=== PATIENT | male | born 1960 | race Caucasian/White ===

== ENCOUNTER 2024-12-01 08:55 | Emergency (ER) | payer MEDICARE, SELFPAY ==
[2024-12-01] VITALS (10 sets, daily range): BP systolic 161–169; BP diastolic 103–116; PULSE 62–86; TEMP 36.6; O2SAT 95–97; BMI 27.8
--- NOTE | 2024-12-01 09:21 | XR_ITS ---
The [address] [address] Patient Name: RENATA ALVAREZ MRN: [id number] date: 1960 Sex: M Assigned Patient Location: ED.MAIN Current Patient Location: ED.MAIN Accession/Order Number: [id number] Exam Date: 12/01/2024 09:29 Report Date: 12/01/2024 10:13 At the request of: BRIANA RASHID DO Procedure: XR chest 2V Plain film chest Single view HISTORY: Cough. Shortness of breath. Chest pain. COMPARISON: None FINDINGS: SUPPORT DEVICES: None POSTSURGICAL CHANGES: None HEART: Within normal limits PULMONARY JOSEPHINE: Within normal limits MEDIASTINUM: Unremarkable LUNGS AND PLEURA: No acute lung process, pleural effusion or pneumothorax identified. Hyperinflation. BONY STRUCTURES: Intact ADDITIONAL FINDINGS None XR/XR chest 2V IMPRESSION: No acute process. Impression dictated by: Gregorio Dill M.D. 12/01/2024 10:13 AM Dictation Location: [employer] Electronically authenticated by: [id number] Y Date: 12/01/2024 10:13
--- NOTE | 2024-12-01 09:21 | ECG_ITS ---
[facility] Test Date: 2024-12-01 Pat Name: RENATA ALVAREZ Department: Room: - Gender: Male Senior [employer]: : 1960 Requested By: [id number] Order Number: [id number] Reading MD: AMAYA PALMA M.D. Measurements Intervals [place] Rate: 80 P: 90 AL: 164 QRS: 35 QRSD: 90 T: 63 QT: 366 QTc: 401 Interpretive Statements 1100 Sinus rhythm 9110 normal ECG No previous ECG available for comparison Electronically Signed On 12-01-2024 15:15:42 EDT by AMAYA PALMA M.D.
[2024-12-01 09:38] LABS: Hematocrit 44.5 % (42.0-54.0); Hemoglobin 15.5 g/dL (14.0-18.0); Immature Granulocytes Abs Auto 0.01 10^3/uL (0.00-0.03); Immature Granulocytes Pct Auto 0.1 % (0.0-0.5); Lymphocytes Absolute Auto 2.3 10^3/uL (1.2-3.8); Mean Corpuscular HGB Conc 34.8 g/dL (29.9-35.2); Mean Corpuscular Hemoglobin 31.6 pg (25.9-34.0); Mean Corpuscular Volume 90.6 fL (80.0-94.0); Platelet Count 300 10^3/uL (150-450); Red Blood Count 4.91 10^6/uL (4.70-6.10); White Blood Count 7.4 10^3/uL (4.0-11.0)
[2024-12-01 09:41] LABS: Anion Gap 15.4; Blood Urea Nitrogen 14.0 mg/dL (7.0-18.0); Calcium 9.1 mg/dL (8.5-10.1); Carbon Dioxide 25.8 mmol/L (21.0-32.0); Chloride 105 mmol/L (98-107); Estimated GFR (African America >60 (>=60 mL/min/1.73m^2); Estimated GFR (Non-African Ame >60 (>=60 mL/min/1.73m^2); Glucose 108 mg/dL (74-106); Magnesium 2.2 mg/dL (1.8-2.4); Potassium 4.2 mmol/L (3.5-5.1); Sodium 142 mmol/L (136-145)
--- NOTE | 2024-12-01 11:09 | ED_ITS ---
HPI HPI - General Adult General Chief complaint: Chest Pain Stated complaint: CHEST PAIN SOB Time Seen by Provider: 12/01/24 09:07 Source: patient Mode of arrival: Wheelchair History of Present Illness HPI narrative: Patient is a 64-year-old male presenting to the emergency department for evaluation of left-sided chest pain. Patient states that his symptoms started around 2:30 in the morning, and woke him out of his sleep. He states the pain is intermittent, comes in waves, and feels like a stabbing/muscle spasm/squeezing pain. He denies any associated diaphoresis, shortness of breath, nausea, or vomiting. He denies history of coronary artery disease, previous IL, coronary stents, or CABG. He denies history of DVT/PE, leg swelling, hemoptysis, or other recent surgical procdures/immobilizations. He denies any trauma to the area. No fevers or chills. No URI symptoms such as cough or congestion. He states he took a 325 mg aspirin prior to his ED arrival. Related Data Allergies Allergy/AdvReac Type Severity Reaction Status Date / Time NSAIDS (Non-Steroidal Allergy Severe Hives Verified 12/01/24 09:05 Anti-Inflamma propoxyphene (From Darvon) Allergy Severe Hives Verified 12/01/24 09:05 Review of Systems ROS Status of ROS 10 or more systems reviewed and unremark able except as noted in history and below PFSH PFSH Social History Little interest or pleasure in doing things: not at all Feeling down, depressed, or hopeless: not at all Exam Narrative Exam Narrative: CONSTITUTIONAL: Well-appearing, answering questions and following commands appropriately SKIN: Was warm and dry. EYES: Sclera white. EARS, NOSE, THROAT: No JVD. RESPIRATORY: Clear to auscultation bilaterally, no wheezes, crackles, or stridor, no use of accessory muscles CARDIOVASCULAR: Normal rate and regular rhythm. There is no S3, S4, murmur, rub. Radial pulses are 2+ and symmetrical. GASTROINTESTINAL: Abdomen was soft, non-tender, and non-distended. There is no guarding or rebound tenderness MUSCULOSKELETAL: There was no lower extremity edema, erythema, or tenderness. NEUROLOGIC: Patient is awake and alert. Facies were symmetrical. Constitutional Vital Signs, click to edit/add: Last Vital Signs Temp 98 F 12/01/24 08:59 Pulse 79 12/01/24 10:10 Resp 23 H 12/01/24 10:10 BP 164/108 H 12/01/24 10:00 Pulse Ox 95 12/01/24 10:10 Course Vital Signs Vital signs: Vital Signs Temperature 98 F 12/01/24 08:59 Pulse Rate 76 12/01/24 08:59 Respiratory Rate 20 12/01/24 08:59 Blood Pressure 169/116 H 12/01/24 08:59 Pulse Oximetry 96 12/01/24 08:59 Temperature 98 F 12/01/24 08:59 Pulse Rate 79 12/01/24 10:10 Respiratory Rate 23 H 12/01/24 10:10 Blood Pressure 164/108 H 12/01/24 10:00 Pulse Oximetry 95 12/01/24 10:10 Medical Decision Making MDM Narrative Medical decision making narrative: Patient is a 64-year-old male presenting to the emergency department for evaluation of left-sided chest pain that began in the middle the night while he was sleeping, approximately 7 hours ago. His vital signs on arrival are significant for mild hypertension, otherwise were within normal limits. He is afebrile hemodynamically stable. Patient overall appears well and in no acute distress. He has a normal physical examination. Differential diagnosis includes ACS, arrhythmia, pneumothorax, pneumonia, musculoskeletal pain, muscle spasm. I did consider PE, however the patient is not tachycardic, hypoxic, and has a Wells Score of 0 for PE -making him low risk. IV was established and laboratory studies were obtained. Chest x-ray independently reviewed/interpreted by myself demonstrated no acute cardiopulmonary process. 12 Lead EKG: Normal sinus rhythm at a rate of 80. Normal axis. No ST segment elevations. QRS, UT, and QTc interval within normal limits. Final impression: normal sinus rhythm without evidence of acute myocardial ischemia Laboratory studies were unremarkable. No significant electrolyte or metabolic derangement. No evidence of acute kidney injury. No anemia, leukocytosis, or thrombocytopenia. Initial and repeat 2-hour troponins were nonelevated at 6.3 and 6.3 respectively. On reevaluation, patient states his chest pain still comes and goes, but overall is improving. Given his normal cardiac workup and atypical symptoms, I have low concern for ACS. Using the HEART score, he has a score of 3 (age, 1-2 risk factors for smoking) - making him low risk for MACE. I do believe the patient is stable for discharge. They were instructed to follow up with his PCP in the next 3 to 5 days for further care. Return precautions were given including any new or worsening symptoms. Patient understands and agrees to the plan. FINAL IMPRESSION: #Acute chest pain DISPOSITION: Discharged home CONDITION: Good Lab Data Lab results reviewed: Yes I reviewed the patient's lab results Labs: Lab Results 12/01/24 12/01/24 Range/Units 09:10 10:30 WBC 7.4 (4.0-11.0) 10^3/uL RBC 4.91 (4.70-6.10) 10^6/uL Hgb 15.5 (14.0-18.0) g/dL Hct 44.5 (42.0-54.0) % MCV 90.6 (80.0-94.0) fL MCH 31.6 (25.9-34.0) pg MCHC 34.8 (29.9-35.2) g/dL RDW 12.2 (11.0-15.0) % Plt Count 300 (150-450) 10^3/uL MPV 9.5 (9.5-13.5) fL Neut % (Auto) 53.3 (43.0-75.0) % Lymph % (Auto) 31.6 (20.5-60.0) % [place] % (Auto) 9.9 (1.7-12.0) % Eos % (Auto) 3.3 (0.9-7.0) % Baso % (Auto) 1.8 (0.2-2.0) % Neut # (Auto) 3.9 (1.4-6.5) 10^3/uL Lymph # (Auto) 2.3 (1.2-3.8) 10^3/uL [place] # (Auto) 0.7 (0.3-0.8) 10^3/uL Eos # (Auto) 0.2 (0.0-0.7) 10^3/uL Baso # (Auto) 0.1 (0.0-0.1) 10^3/uL Abs Immat Gran (auto) 0.01 (0.00-0.03) 10^3/uL Imm/Tot Granulo (auto) 0.1 (0.0-0.5) % Sodium 142 (136-145) mmol/L Potassium 4.2 (3.5-5.1) mmol/L Chloride 105 (98-107) mmol/L Carbon Dioxide 25.8 (21.0-32.0) mmol/L Anion Gap 15.4 BUN 14.0 (7.0-18.0) mg/dL Creatinine 0.96 (0.70-1.30) mg/dL Est GFR ( Amer) >60 (>=60 mL/min/1.73m^2) Est GFR (Non-Af Amer) >60 (>=60 mL/min/1.73m^2) BUN/Creatinine Ratio 14.6 Glucose 108 H (74-106) mg/dL Calcium 9.1 (8.5-10.1) mg/dL Magnesium 2.2 (1.8-2.4) mg/dL Troponin I High Sens 6.3 6.3 (4.0-76.1) pg/mL Imaging Data Chest x-ray: Attestation: I personally reviewed and interpreted this imaging study as follows: Radiologist's impression: ITS Impressions Chest X-Ray 12/01/24 09:21 IMPRESSION: No acute process. Impression dictated by: Gregorio Dill M.D. 12/01/2024 10:13 AM Dictation Location: [place] [address] Electronically authenticated by: [id number] Y Date: 12/01/2024 10:13 ECG Data Attestation: I personally reviewed and interpreted this ECG as follows: Discharge Plan Discharge Chief Complaint: Chest Pain Clinical Impression: Atypical chest pain Print Language: [place] Referrals: Eligio Garcia DO [Primary Care Provider, Internal Medicine] - 1 week
== END 2024-12-01 11:24 | disposition home or self-care (01) ==
PROVIDERS: Emergency Provider Student in an Organized Health Care Education/Training Program; PCP Internal Medicine
DX: R07.89 Other chest pain (principal)
CPT/HCPCS: 36415; 71046; 80048; 83735; 84484; 85025; 93005; 99285